=== PATIENT | female | born 1950 | race Caucasian/White ===

== ENCOUNTER → 2018-01-25 | Outpatient (CLI) | payer OTHER ==
[~2018-01-25] MED LIST: AMARYL2 MG PO; ASA5UEC PO; ASPIRIN81 M2 PO; ATORVASTATIN CA20 MG PO; CELEXA40 MG; CELEXA40 MG PO; CHANTIX1 MG PO; GLUCOPHAGE500 MG PO; GLUCOTROL5 MG PO; HYDROCHLOROTH12.5 M1 PO; HYDROCHLOROTH12.5 MG; HYDROCHLOROTH12.5 MG PO; LIPITOR20 MG; NOHOMEMEDICATIONS; PLAVIX 75 MG TA75 M1 PO; PRINIVIL20 M1 PO; PROTONIX 20 MG20 M1 PO; QUINAPRIL 20 MG20 MG PO; QUINAPRIL HCL20 MG PO; VERAPAMIL ER180 MG; VERAPAMIL ER180 MG PO; VERAPAMIL HCL120 M1 PO; VESICARE 5 MG TA5 M1; VESICARE 5 MG TA5 M1 PO; accupril
== END ==
LOC: ULTRA 06:33
DX: N18.3 Chronic kidney disease, stage 3 (moderate) (principal)

== ENCOUNTER → 2018-06-15 | Outpatient (CLI) | payer OTHER | LOC: ULTRA 09:03 | DX: K76.89 Other specified diseases of liver (principal); N20.0 Calculus of kidney; I10 Essential (primary) hypertension; E11.9 Type 2 diabetes mellitus without complications; E78.00 Pure hypercholesterolemia, unspecified ==

== ENCOUNTER 2018-09-21 12:40 | Inpatient (IN) | payer OTHER ==
[~2018-09-21] VITALS: Ht 167.6 cm; Wt 104.3 kg
[2018-09-21 12:42] VITALS: BP 118/60
[2018-09-21 13:09] LABS: BASOPHILS 0.3 % (0.0-2.0); EOSINOPHILS 0.1 % (0.0-3.0); HEMATOCRIT 41.7 % (37.0-47.0); HEMOGLOBIN 14.4 gm/dL (12.0-15.0); LYMPHOCYTES 5.7 % (24.0-44.0); MCH 34.1 pg (26.0-34.0); MCHC 34.6 g/dL (28.0-37.0); MCV 98.6 fL (80.0-100.0); MONOCYTES 11.5 % (1.0-8.0); PLATELET COUNT 122 thou/uL (150-400); POLYS 82.4 % (36.0-66.0); RBC 4.23 mil/uL (4.20-5.00); RDW 13.4 % (10.5-14.5); WBC 10.9 thou/uL (4.0-11.0)
[2018-09-21 13:19] LABS: ANION GAP 10 mmol/L (7-16); BUN 18 mg/dL (7-18); CALCIUM 8.8 mg/dL (8.5-10.1); CHLORIDE 104 mmol/L (98-107); CO2 24 mmol/L (21-32); CREATININE 1.3 mg/dL (0.6-1.0); GLUCOSE 155 mg/dL (74-106); POTASSIUM 3.7 mmol/L (3.5-5.1); SODIUM 138 mmol/L (136-145)
[2018-09-21 13:27] LABS: LIPASE 77 U/L (73-393); SGOT 12 U/L (15-37); SGPT 14 U/L (30-65); TOTAL BILIRUBIN 0.7 mg/dL (<0.1-1.0); TOTAL PROTEIN 6.7 g/dL (6.4-8.2); TROPONIN-I <0.06 ng/mL (<0.06)
[2018-09-21 13:52] LABS: URINE BILIRUBIN NEGATIVE (Negative); URINE BLOOD 3+ (Negative); URINE CLARITY CLEAR; URINE COLOR YELLOW; URINE GLUCOSE-RANDOM* NEGATIVE (Negative); URINE KETONES NEGATIVE (Negative); URINE NITRITE-REFLEX POSITIVE (Negative); URINE PROTEIN (DIPSTICK) 1+ (Negative); URINE UROBILINOGEN 0.2 E.U./dl (0.2-1.0)
[2018-09-21 13:53] LABS: URINE LEUKOCYTES-REFLEX 1+ (Negative)
[2018-09-21 14:02] LABS: BACTERIA-REFLEX >30 Many /HPF (None Seen); CASTS None Seen /LPF (None Seen); CRYSTALS None Seen /LPF (None Seen); SQUAMOUS 0-3 Few /LPF (0-3)
[2018-09-21 16:45] VITALS: BP 148/54
[2018-09-21 18:30] VITALS: BP 142/57
[2018-09-21 19:05] VITALS: BP 156/49
--- NOTE | 2018-09-21 22:05 | EKG ---
[address] [place] [address] ELECTROCARDIOGRAM REPORT Name: YULIYA HENLEY Room #: 454-P ADM IN M.R.#: [id number] Admission: 09/21/18 Attend Phys: Bob Saeed MD Discharge: Date of : 48 Report #: [id number] THIS REPORT FOR: //name// [facility] ED Test Date: 2018-09-21 Test Time: 13:04:02 Pat Name: YULIYA HENLEY Department: Room: [facility] Gender: F [employer]: DONALD : 1950 Requested By: Houston Ross Order Number: [id number] MD: Sam Cordova Measurements Intervals [place] Rate: 109 P: 53 GA: 190 QRS: -27 QRSD: 83 T: 81 QT: 336 QTc: 453 Interpretive Statements Sinus tachycardia left atrial enlargement leftward axis deviation anteroseptal infarct, old Compared to ECG 03/18/2016 12:22:24 No significant changes Electronically Signed On 09-21-2018 22:05:16 [employer]OP[employer] by Sam Cordova [email or web address] <ELECTRONICALLY SIGNED> By: Sam Cordova MD 09/21/18 2201 1304 1304 Sam Cordova MD /EPI
[2018-09-22 03:54] VITALS: BP 108/37
[2018-09-22 05:30] LABS: HEMATOCRIT 37.1 % (37.0-47.0); MCHC 33.3 g/dL (28.0-37.0); MCV 99.2 fL (80.0-100.0); RBC 3.74 mil/uL (4.20-5.00); RDW 13.8 % (10.5-14.5)
[2018-09-22 05:32] LABS: HEMOGLOBIN 12.4 gm/dL (12.0-15.0)
[2018-09-22 05:51] LABS: ALBUMIN 2.4 g/dL (3.4-5.0); CALCIUM 8.2 mg/dL (8.5-10.1); CREATININE 1.6 mg/dL (0.6-1.0); MAGNESIUM 1.6 mg/dL (1.8-2.4); POTASSIUM 3.6 mmol/L (3.5-5.1); TOTAL BILIRUBIN 0.4 mg/dL (<0.1-1.0); TOTAL PROTEIN 5.7 g/dL (6.4-8.2)
[2018-09-22 07:53] VITALS: BP 119/41
[2018-09-22 15:07] VITALS: BP 132/51
[2018-09-22 19:25] VITALS: BP 120/38
[2018-09-23 04:00] VITALS: BP 143/52
[2018-09-23 05:59] VITALS: BP 126/57
[2018-09-23 10:20] VITALS: BP 150/55
[2018-09-23] MEDS ORDERED: KEFLEX500 M1 PO (10:57)
[2018-09-23 13:58] VITALS: BP 150/55
== END 2018-09-23 15:05 | disposition home health service (06) | DRG 871 ==
LOC: ER 12:40 → EROBS 14:55 → SICU 14:55 → 4W 14:55 → SICU 09-23 05:45 → ENTRNSPT 09-23 14:31 → EDTRNSPTSTS 09-23 14:33 → SICU 09-23 15:05
PROVIDERS: Emergency Medicine; ADMIT Internal Medicine
DX: A41.9 Sepsis, unspecified organism (principal); E43 Unspecified severe protein-calorie malnutrition; N30.00 Acute cystitis without hematuria; I10 Essential (primary) hypertension; E11.9 Type 2 diabetes mellitus without complications; F17.210 Nicotine dependence, cigarettes, uncomplicated; J20.9 Acute bronchitis, unspecified; J06.9 Acute upper respiratory infection, unspecified; E78.5 Hyperlipidemia, unspecified; B96.20 Unspecified Escherichia coli [E. coli] as the cause of diseases classified elsewhere; Z79.899 Other long term (current) drug therapy; Z90.710 Acquired absence of both cervix and uterus; Z86.73 Personal history of transient ischemic attack (TIA), and cerebral infarction without residual deficits; Z91.041 Radiographic dye allergy status; Z71.6 Tobacco abuse counseling
CPT/HCPCS: 10047

== ENCOUNTER 2018-11-01 19:21 | Inpatient (IN) | payer OTHER ==
[~2018-11-01] VITALS: Ht 170.2 cm; Wt 112.1 kg
[~2018-11-01 19:21] MED LIST changes: +KEFLEX500 M1 PO
[2018-11-01 19:23] VITALS: BP 108/56
[2018-11-01 20:11] LABS: HEMATOCRIT 39.4 % (37.0-47.0); HEMOGLOBIN 13.4 gm/dL (12.0-15.0); MCH 33.2 pg (26.0-34.0); MCHC 33.9 g/dL (28.0-37.0); MCV 97.9 fL (80.0-100.0); PLATELET COUNT 106 thou/uL (150-400); RBC 4.03 mil/uL (4.20-5.00); RDW 14.6 % (10.5-14.5); WBC 19.4 thou/uL (4.0-11.0)
[2018-11-01 20:17] LABS: CREATININE 2.4 mg/dL (0.6-1.0); POTASSIUM 4.1 mmol/L (3.5-5.1)
[2018-11-01 20:24] LABS: ALBUMIN 2.9 g/dL (3.4-5.0); TOTAL BILIRUBIN 0.6 mg/dL (<0.1-1.0); TOTAL PROTEIN 6.2 g/dL (6.4-8.2)
[2018-11-01 21:11] LABS: ABSOLUTE NEUTROPHILS 18.2 thou/uL (1.4-8.2)
[2018-11-01 21:12] LABS: PLATELET ESTIMATE DECREASED
[2018-11-01 22:37] LABS: URINE BILIRUBIN NEGATIVE (Negative); URINE BLOOD 1+ (Negative); URINE CLARITY CLEAR; URINE COLOR YELLOW; URINE GLUCOSE-RANDOM* NEGATIVE (Negative); URINE KETONES NEGATIVE (Negative); URINE LEUKOCYTES-REFLEX NEGATIVE (Negative); URINE NITRITE-REFLEX NEGATIVE (Negative); URINE PROTEIN (DIPSTICK) NEGATIVE (Negative); URINE SPECIFIC GRAVITY 1.025 (1.005-1.035); URINE UROBILINOGEN 0.2 E.U./dl (0.2-1.0)
[2018-11-01 22:46] LABS: MUCUS 0-3 Light strn/LPF (None Seen); SQUAMOUS 0-3 Few /LPF (0-3); URINE RBC 3-10 Few /HPF (0-2); URINE WBC-REFLEX 0-5 Rare /HPF (0-5)
[2018-11-01 22:47] LABS: CRYSTALS None Seen /LPF (None Seen); HYALINE CASTS 0-3 Few /LPF (None Seen)
[2018-11-02] VITALS (8 sets, daily range): BP systolic 93–168; BP diastolic 45–102
--- NOTE | 2018-11-02 05:10 | NUR ---
RECEIVED REPORT FROM ER NURSE. PT ARRIVED TO 356 AROUND 0035. ADMISSION HX AND ASSESSMENT COMPLETED CHARTED. PT IS ORIENTED TO PERSON AND PLACE. OTHERWISE CONFUSED. VERY DROWSY AND LETHARGIC. FOLLOWS SIMPLE COMMANDS. DENIES ANY PAIN OR N/V. NO LOOSE STOOLS SINCE ADMISSION TO THE FLOOR. IVF INFUSING ORDERED. TYLENOL GIVEN FOR FEVER. FEVER RESOLVED. PT HAS NOT VOIDED YET. BLADDER SCANNED 271ML. PT TAKEN TO CT SCAN. LAMP MECHANIC RULING TECHNICIAN FOR HOSP[employer] GROUP NOTIFIED OF CT RESULTS. NO NEW ORDERS RECEIVED. FALL PRECAUTIONS IN PLACE. NOT PROGRESSING WELL TOWARD POC GOALS. WILL CONTINUE TO MONITOR FURTHER.
[2018-11-02 05:25] LABS: HEMATOCRIT 34.3 % (37.0-47.0); MCH 32.8 pg (26.0-34.0); MCHC 33.2 g/dL (28.0-37.0); MCV 98.9 fL (80.0-100.0); RBC 3.47 mil/uL (4.20-5.00); RDW 14.5 % (10.5-14.5); WBC 12.5 thou/uL (4.0-11.0)
[2018-11-02 05:35] LABS: HEMOGLOBIN 11.4 gm/dL (12.0-15.0)
[2018-11-02 05:36] LABS: CALCIUM 7.9 mg/dL (8.5-10.1); CREATININE 2.5 mg/dL (0.6-1.0); POTASSIUM 3.2 mmol/L (3.5-5.1)
--- NOTE | 2018-11-02 10:26 | NUR ---
ASSESSMENT: CM REVIEWED CHART AND MET WITH PATIENT AT THE BEDSIDE. PT IS ALERT AND ORIENTED X4. PT WAS ADMITTED DUE TO SEPSIS/'ACUTE GASTROENTERITIS. PT WAS HAVING NAUSEA/VOMITTING AND DIARRHEA AND IS BEING TESTED FOR C-DIFF. PT REPORTS SHE LIVES IN A HOUSE WITH HER GRANDSON. PT REPORTS HAVING ONE STEP TO ENTER THE HOME AND NO STEPS SHE USES ONCE INSIDE. PT REPORTS SHE NORMALLY AMBULATES INDEPENDENTLY BUT DOES HAVE A FWW AT HOME. PT REPORTS HAVING A GRAB BAR AND SHOWER CHAIR. PT REPORTS SHE HAS HAD [facility] IN THE PAST BUT NOT CURRENTLY. CM DISCUSSED ROLE. PT DOES NOT ANTICIPATE HAVING ANY NEEDS AT DISCHARGE. CM WILL CONTINUE TO FOLLOW TO ASSIST NEEDED.
--- NOTE | 2018-11-02 14:02 | NUR ---
This RN has reviewed and agrees with the charting and assessments completed by Xiomy Gr.
[2018-11-02 15:30] LABS: MAGNESIUM 1.9 mg/dL (1.8-2.4)
[2018-11-02 15:31] LABS: POTASSIUM 5.6 mmol/L (3.5-5.1)
--- NOTE | 2018-11-02 15:41 | NUR ---
care of pt assumed this am @ ~0700. pt noted to be in bed resting quietly and comfortably, no compliants of pain, n/v/d and no soa today. pt up to the [facility] w/ x1 sba and gait belt numerous times today, w/ bm sent to lab. pt on a clear liquid diet and tolerating well, no n/v. pt visited by her grandson today (with whom she lives) and he states she is a baseline other than being "tired" and "worn out". pt receiving electrolyte replacement today along w/ ivf's. informed from cm/rn pt will transfer to another facility due to the need for a urologist later today. rn awaiting facility & transportation information from [facility].
[2018-11-02] MEDS ORDERED: AMARYL4 MG PO (19:35)
[2018-11-02] MEDS ORDERED: PIOGLITAZONE15 MG (19:38)
[2018-11-03 03:47] VITALS: BP 111/54
[2018-11-03 05:07] LABS: HEMATOCRIT 32.3 % (37.0-47.0); HEMOGLOBIN 10.6 gm/dL (12.0-15.0); MCH 32.4 pg (26.0-34.0); MCHC 32.9 g/dL (28.0-37.0); MCV 98.5 fL (80.0-100.0); RBC 3.28 mil/uL (4.20-5.00); RDW 14.9 % (10.5-14.5); WBC 11.4 thou/uL (4.0-11.0)
[2018-11-03 05:17] LABS: CALCIUM 7.8 mg/dL (8.5-10.1); CREATININE 2.4 mg/dL (0.6-1.0)
[2018-11-03 05:18] LABS: POTASSIUM 4.4 mmol/L (3.5-5.1)
[2018-11-03 07:36] VITALS: BP 142/63
--- NOTE | 2018-11-03 07:48 | NUR ---
PT MAKING PROGRESS TOWARDS GOALS. HAS DENIED ANY PAIN OR DISCOMFORTS. ALERT AND ORIENTED APPROPRIATELY. AWAITING TRANSFER TO [facility].
--- NOTE | 2018-11-03 08:20 | NUR ---
ON-GOING ASSESSMENT: CM CONTACTED THE TRANSFER TEAM THIS AM TO CHECK ON THE STATUS OF TRANSFERING PATIENT TO [facility]. TRANSFER TEAM STATES IT DID NOT HAPPEN LAST NIGHT BECAUSE [facility] WAS FULL BUT THEY ARE CHECKING THE BED STATUS THIS AM AND WILL GET BACK WITH CASE MANAGEMENT. CM CONTACTED BEDSIDE RN TO UPDATE. CM WILL CONTINUE TO FOLLOW.
[2018-11-03 11:13] VITALS: BP 114/54
[2018-11-03] MEDS ORDERED: FLOMAX0.4 MG PO (14:47)
[2018-11-03] MEDS ORDERED: ACETAMINOPHEN325 M1 PO (14:47)
[2018-11-03 15:15] VITALS: BP 117/49
--- NOTE | 2018-11-03 15:36 | NUR ---
on-GOING ASSESSMENT: CM RECEIVED A CALL FROM [facility] WHO STATES THEY CAN ACCEPT PATIENT. THE ACCEPTING PHYSICIAN IS DR. SHELLI SAMS AND SHE WILL BE GOING INTO ROOM 237. CM SPOKE WITH TRANSFER CHUTE BOSS WHO STATES THEY DO NOT NEED ANY DISCHARGE ORDERS FAXED AND THEY WILL CONTACT THE BEDSIDE RN ON THE UNIT AT [facility] FOR REPORT (THEY HAVE THE NUMBER). CHART COPY WAS ORDERED FOR PATIENT. CM COMPLETED THE [employer] FORM AND FAXED TO [facility]. CM ALSO CONTACTED [facility] TO ARRANGE TRANSPORTATION [phone]. [facility] STATES THEY SHOULD LINUX ARCHITECT PATIENT BETWEEN [phone]. CM NOTIFIED BEDSIDE RN TO COMPLETE THE TRANSFER FORM AND MAKE A COPY FOR OUR CHART RECORDS AND SEND THE PATIENT WITH ONE. CM NOTIFIED PATIENT AND PATIENTS DAUGHTER THAT [facility] IS ACCEPTING. ATTENDING IS AWARE.
--- NOTE | 2018-11-03 17:33 | NUR ---
PT EDUCATED ON HER PLAN OF CARE..PLAN IS TO TRANSFER HER TO [facility] SO THIS SANTA...
== END 2018-11-03 19:22 | disposition short-term general hospital (02) | DRG 871 ==
LOC: ER 19:21 → 3W 23:03 → EROBS 23:03 → 3W 11-02 00:24
PROVIDERS: Emergency Medicine; Nurse Practitioner Acute Care; ADMIT Internal Medicine
DX: A41.9 Sepsis, unspecified organism (principal); G92 Toxic encephalopathy; N17.9 Acute kidney failure, unspecified; N13.6 Pyonephrosis; I69.351 Hemiplegia and hemiparesis following cerebral infarction affecting right dominant side; N39.0 Urinary tract infection, site not specified; K52.9 Noninfective gastroenteritis and colitis, unspecified; F17.210 Nicotine dependence, cigarettes, uncomplicated; N18.9 Chronic kidney disease, unspecified; I12.9 Hypertensive chronic kidney disease with stage 1 through stage 4 chronic kidney disease, or unspecified chronic kidney disease; E11.22 Type 2 diabetes mellitus with diabetic chronic kidney disease; B96.89 Other specified bacterial agents as the cause of diseases classified elsewhere; Z90.710 Acquired absence of both cervix and uterus; Z91.041 Radiographic dye allergy status; Z82.49 Family history of ischemic heart disease and other diseases of the circulatory system; Z83.3 Family history of diabetes mellitus; Z79.899 Other long term (current) drug therapy
CPT/HCPCS: 10879

== ENCOUNTER → 2020-08-19 | Outpatient (CLI) | payer OTHER ==
[~2020-08-19] MED LIST changes: +ACETAMINOPHEN325 M1 PO; +AMARYL4 MG PO; +FLOMAX0.4 MG PO; +PIOGLITAZONE15 MG
== END ==
LOC: SJCVC 13:38
PROVIDERS: ATTEND Internal Medicine
DX: R94.31 Abnormal electrocardiogram [ECG] [EKG] (principal); E11.21 Type 2 diabetes mellitus with diabetic nephropathy; E11.22 Type 2 diabetes mellitus with diabetic chronic kidney disease; I13.0 Hypertensive heart and chronic kidney disease with heart failure and stage 1 through stage 4 chronic kidney disease, or unspecified chronic kidney disease; I50.32 Chronic diastolic (congestive) heart failure; N18.30 Chronic kidney disease, stage 3 unspecified; R06.02 Shortness of breath

== ENCOUNTER → 2020-09-10 | Outpatient (CLI) | payer OTHER | LOC: SJCVCIMAG 07:55 | PROVIDERS: ATTEND Internal Medicine | DX: R06.00 Dyspnea, unspecified (principal); E11.22 Type 2 diabetes mellitus with diabetic chronic kidney disease; I13.0 Hypertensive heart and chronic kidney disease with heart failure and stage 1 through stage 4 chronic kidney disease, or unspecified chronic kidney disease; I50.9 Heart failure, unspecified; N18.30 Chronic kidney disease, stage 3 unspecified; R00.1 Bradycardia, unspecified; Z72.0 Tobacco use; Z79.899 Other long term (current) drug therapy ==

== ENCOUNTER → 2020-12-17 | Outpatient (CLI) | payer OTHER | LOC: SJCVC 11:48 | PROVIDERS: ATTEND Internal Medicine | DX: R94.31 Abnormal electrocardiogram [ECG] [EKG] (principal); I50.32 Chronic diastolic (congestive) heart failure; E78.5 Hyperlipidemia, unspecified; E11.21 Type 2 diabetes mellitus with diabetic nephropathy; N18.30 Chronic kidney disease, stage 3 unspecified; I63.81 Other cerebral infarction due to occlusion or stenosis of small artery; I13.0 Hypertensive heart and chronic kidney disease with heart failure and stage 1 through stage 4 chronic kidney disease, or unspecified chronic kidney disease; Z72.0 Tobacco use; Z72.89 Other problems related to lifestyle; Z79.82 Long term (current) use of aspirin; Z79.84 Long term (current) use of oral hypoglycemic drugs; Z79.899 Other long term (current) drug therapy; Z88.8 Allergy status to other drugs, medicaments and biological substances ==

== ENCOUNTER → 2020-12-24 | Outpatient (CLI) | payer OTHER | LOC: CAT 12:12 → EDSTATUS 15:23 | PROVIDERS: ATTEND Internal Medicine | DX: J98.4 Other disorders of lung (principal); I25.10 Atherosclerotic heart disease of native coronary artery without angina pectoris; Z72.0 Tobacco use ==

== ENCOUNTER → 2021-06-19 | Outpatient (CLI) | payer OTHER | LOC: SJCVCIMAG 08:11 | PROVIDERS: ATTEND Internal Medicine | DX: R94.31 Abnormal electrocardiogram [ECG] [EKG] (principal); I44.0 Atrioventricular block, first degree; I65.23 Occlusion and stenosis of bilateral carotid arteries; N28.1 Cyst of kidney, acquired; I13.0 Hypertensive heart and chronic kidney disease with heart failure and stage 1 through stage 4 chronic kidney disease, or unspecified chronic kidney disease; E11.22 Type 2 diabetes mellitus with diabetic chronic kidney disease; N18.30 Chronic kidney disease, stage 3 unspecified; I50.32 Chronic diastolic (congestive) heart failure; E11.21 Type 2 diabetes mellitus with diabetic nephropathy; I63.81 Other cerebral infarction due to occlusion or stenosis of small artery; E78.5 Hyperlipidemia, unspecified; F17.210 Nicotine dependence, cigarettes, uncomplicated; Z82.49 Family history of ischemic heart disease and other diseases of the circulatory system; Z79.82 Long term (current) use of aspirin; Z79.899 Other long term (current) drug therapy; Z88.8 Allergy status to other drugs, medicaments and biological substances ==